=== PATIENT | female | born 1975 | race Caucasian/White ===

== ENCOUNTER → 2017-06-07 10:44 | Outpatient (CLI) | payer BC, SELFPAY ==
[2017-06-07 11:35] LABS: Alanine Aminotransferase 15 U/L (12-78); Albumin Level 3.9 gm/dL (3.4-5.0); Albumin/Globulin Ratio 0.8 (1.1-1.8); Alkaline Phosphatase 43 U/L (46-116); Aspartate Amino Transferase 15 U/L (15-37); Bilirubin,Total 0.4 mg/dL (0.2-1.0); Blood Urea Nitrogen 16 mg/dL (7-18); Calcium 9.4 mg/dL (8.5-10.1); Carbon Dioxide 27 mmol/L (21.0-32.0); Chloride 102 mmol/L (98-107); Chol/HDL Ratio 3.3 (1-3.5); Cholesterol 174 mg/dL (140-200); Creatinine,Serum 1.29 mg/dL (0.55-1.02); Estimated Glomerular Filt Rate 45 ml/min (>60); GFR (African American) 55 ML/MIN (>60); Globulin 4.8 gm/dl (1.3-3.2); Glucose 96 mg/dL (74-106); HDL Cholesterol 52 mg/dL (29-89); LDL Cholesterol 93 mg/dL (0-130); Sodium 137 mmol/L (136-145); Thyroid Stimulating Hormone 12.76 uIU/ml (0.358-3.740); Total Protein,Serum 8.7 gm/dL (6.4-8.2); Triglycerides 145 mg/dL (30-200); VLDL Cholesterol 29 mg/dL (0-40)
== END ==
PROVIDERS: Visit Provider Nurse Practitioner Family
DX: E78.5 Hyperlipidemia, unspecified (principal); E03.9 Hypothyroidism, unspecified; N18.2 Chronic kidney disease, stage 2 (mild)
CPT/HCPCS: 36415; 80053; 80061; 84443

== ENCOUNTER → 2018-02-20 15:55 | Outpatient (CLI) | payer BC, SELFPAY ==
[2018-02-20 17:48] LABS: Alanine Aminotransferase 20 U/L (12-78); Albumin Level 3.8 gm/dL (3.4-5.0); Albumin/Globulin Ratio 0.9 (1.1-1.8); Alkaline Phosphatase 46 U/L (46-116); Anion Gap 14.9 mEq/L (5-15); Aspartate Amino Transferase 11 U/L (15-37); Bilirubin,Total 0.3 mg/dL (0.2-1.0); Blood Urea Nitrogen 9 mg/dL (7-18); Calcium 8.8 mg/dL (8.5-10.1); Carbon Dioxide 25 mmol/L (21.0-32.0); Chloride 102 mmol/L (98-107); Creatinine,Serum 1.37 mg/dL (0.55-1.02); Estimated Glomerular Filt Rate 42 ml/min (>60); GFR (African American) 51 ML/MIN (>60); Globulin 4.3 gm/dl (1.3-3.2); Glucose 89 mg/dL (74-106); Potassium 3.9 mmoL/L (3.5-5.1); Sodium 138 mmol/L (136-145); Thyroid Stimulating Hormone 0.02 uIU/ml (0.358-3.740); Total Protein,Serum 8.1 gm/dL (6.4-8.2)
== END ==
PROVIDERS: Visit Provider Nurse Practitioner Family
DX: I10 Essential (primary) hypertension (principal); N18.2 Chronic kidney disease, stage 2 (mild); E03.9 Hypothyroidism, unspecified
CPT/HCPCS: 36415; 80053; 84443

== ENCOUNTER → 2018-06-09 10:10 | Outpatient (CLI) | payer BC, SELFPAY ==
[2018-06-09 12:54] LABS: Anion Gap 15.6 mEq/L (5-15); Blood Urea Nitrogen 12 mg/dL (7-18); Calcium 9.2 mg/dL (8.5-10.1); Carbon Dioxide 26 mmol/L (21.0-32.0); Chloride 105 mmol/L (98-107); Creatinine,Serum 1.35 mg/dL (0.55-1.02); Estimated Glomerular Filt Rate 43 ml/min (>60); GFR (African American) 52 ML/MIN (>60); Glucose 93 mg/dL (74-106); Potassium 4.6 mmoL/L (3.5-5.1); Sodium 142 mmol/L (136-145); Thyroid Stimulating Hormone 0.07 uIU/ml (0.358-3.740)
== END ==
PROVIDERS: Visit Provider Nurse Practitioner Family
DX: E03.9 Hypothyroidism, unspecified (principal); I10 Essential (primary) hypertension
CPT/HCPCS: 36415; 80048; 84443

== ENCOUNTER → 2019-10-12 08:12 | Outpatient (CLI) | payer BC, SELFPAY ==
--- NOTE | 2019-10-12 08:19 | MM_ITS ---
PROCEDURE: MM DIG SCREENING MAMM BI W/CAD Digital Breast Tomosynthesis Included CLINICAL INDICATION: SCREENING There is no personal or family history of breast cancer. There has been previous bilateral breast reduction surgery. COMPARISON: MG DMSB DIGITAL MAMM-SCREEN BILATERAL from 07/17/2010 MG DMSB DIG MAMM-SCREEN MALU from 12/11/2013 TECHNIQUE: Standard CC and MLO images and 3D Tomosynthesis was obtained. R2 CAD reviewed. FINDINGS: Moderate somewhat diffuse fibroglandular densities are seen in the central portions of both breasts. There is minimal post surgical scarring in the inferior quadrants of each breast. There is no suspicious lesion and no suspicious microcalcifications. IMPRESSION: Mild to moderate breast density with no suspicious lesions seen BI-RAD Category: 2 Benign Finding(s) FOLLOW-UP: 1YR 1 Year Follow-up (A letter has been sent to the patient regarding results of the study.) Dictated Dr. Jerry Duffy MD 10/19/2019 09:02 Dr. Jerry Brambila MD in [place] 10/19/2019 09:02
[2019-10-12 09:50] LABS: Basophils % 0.4 % (0.1-2.0); Eosinophils # 0.1 K/mm3 (0.0-0.4); Eosinophils % 2.1 % (0.1-12.0); Hematocrit 37.5 % (37.0-47.0); Hemoglobin 12.6 g/dL (12.2-16.2); Lymphocytes # 2.1 K/mm3 (0.7-4.5); Lymphocytes % 34.1 % (10-50); Mean Corpuscular HGB Conc 33.7 g/dL (31.8-35.4); Mean Corpuscular Hemoglobin 29.7 pg (27.0-31.2); Mean Corpuscular Volume 88.1 fl (81-99); Mean Platelet Volume 8.2 fl (7.4-10.4); Monocytes # 0.3 K/mm3 (0.1-1.0); Monocytes % 5.6 % (1.7-9.3); Neutrophils # 3.5 K/mm3 (1.8-7.8); Neutrophils % 57.8 % (37.0-80.0); Platelet Count 268 K/mm3 (142-424); Red Blood Count 4.25 M/mm3 (4.20-5.40); White Blood Count 6.1 K/mm3 (4.8-10.8)
[2019-10-12 10:31] LABS: Chloride 104 mmol/L (98-107); Potassium 5.2 mmoL/L (3.5-5.1); Sodium 140 mmol/L (136-145)
[2019-10-12 10:33] LABS: Alanine Aminotransferase 11 U/L (12-78); Aspartate Amino Transferase 21 U/L (14-36); Blood Urea Nitrogen 13 mg/dl (7-17); Estimated Glomerular Filt Rate 44 ml/min (>60); GFR (African American) 54 ML/MIN (>60)
[2019-10-12 10:34] LABS: Albumin Level 4.1 g/dl (3.5-5.0); Albumin/Globulin Ratio 1.2 (1.1-1.8); Alkaline Phosphatase 38 U/L (38-126); Anion Gap 15.2 mEq/L (5-15); Bilirubin,Total 0.4 mg/dl (0.2-1.3); Calcium 9.3 mg/dl (8.4-10.2); Carbon Dioxide 26 mmol/L (22.0-30.0); Chol/HDL Ratio 3.7 (1-3.5); Cholesterol 180 mg/dl (140-200); Globulin 3.5 g/dL (1.3-3.2); Glucose 94 mg/dl (74-100); HDL Cholesterol 49 mg/dl (40-60); Total Protein,Serum 7.6 g/dl (6.3-8.2); Triglycerides 146 mg/dl (30-150); VLDL Cholesterol 29 mg/dL (0-40)
[2019-10-12 10:48] LABS: Direct LDL Cholesterol 90.34 mg/dL (100-129)
[2019-10-12 11:09] LABS: Thyroid Stimulating Hormone 1.31 uIU/mL (0.465-4.68)
== END ==
PROVIDERS: PCP Nurse Practitioner Family; Visit Provider Nurse Practitioner Family
DX: Z12.31 Encounter for screening mammogram for malignant neoplasm of breast (principal); N18.2 Chronic kidney disease, stage 2 (mild); E03.9 Hypothyroidism, unspecified; E78.5 Hyperlipidemia, unspecified
CPT/HCPCS: 36415; 77063; 77067; 80053; 80061; 84443; 85025

== ENCOUNTER → 2020-10-29 09:52 | Outpatient (CLI) | payer BC, SELFPAY ==
--- NOTE | 2020-10-29 10:24 | MM_ITS ---
PROCEDURE: MM DIG SCREENING MAMM BI W/CAD Digital Breast Tomosynthesis Included CLINICAL INDICATION: SCREENING COMPARISON: MG DMSB DIGITAL MAMM-SCREEN BILATERAL from 07/17/2010 MG DMSB DIG MAMM-SCREEN MALU from 12/11/2013 MG MM DIG SCREENING MAMM BI W/CAD from 10/12/2019 TECHNIQUE: Standard CC and MLO images and 3D Tomosynthesis was obtained. R2 CAD reviewed. FINDINGS: Average fibroglandular tissue. Postsurgical changes from prior breast reduction. No suspicious appearing mass, malignant-appearing microcalcification, architectural distortion, or skin thickening. No significant change IMPRESSION: No change with no evidence of malignancy BI-RAD Category: 2 Benign Finding FOLLOW-UP: 1 YR 1 Year Follow-up (A letter has been sent to the patient regarding results of the study.) Dictated by: Lalit Awad MD 11/04/2020 09:00 Lalit Awad MD in [place] 11/04/2020 09:00
[2020-10-29 11:26] LABS: Basophils % 0.6 % (0.1-2.0); Eosinophils # 0.1 K/mm3 (0.0-0.4); Eosinophils % 2.4 % (0.1-12.0); Hemoglobin 12.6 g/dL (12.2-16.2); Lymphocytes # 1.9 K/mm3 (0.7-4.5); Lymphocytes % 43.5 % (10-50); Mean Corpuscular HGB Conc 33.2 g/dL (31.8-35.4); Mean Corpuscular Hemoglobin 27.7 pg (27.0-31.2); Mean Corpuscular Volume 83.4 fl (81-99); Mean Platelet Volume 8.7 fl (7.4-10.4); Monocytes # 0.3 K/mm3 (0.1-1.0); Monocytes % 6.1 % (1.7-9.3); Neutrophils # 2.1 K/mm3 (1.8-7.8); Neutrophils % 47.4 % (37.0-80.0); Platelet Count 298 K/mm3 (142-424); Red Blood Count 4.55 M/mm3 (4.20-5.40); Red Cell Distribution Width 13.2 % (11.5-17.5); White Blood Count 4.3 K/mm3 (4.8-10.8)
[2020-10-29 12:23] LABS: Chloride 107 mmol/L (98-107)
[2020-10-29 12:24] LABS: Potassium 4.7 mmoL/L (3.5-5.1); Sodium 143 mmol/L (136-145)
[2020-10-29 12:27] LABS: Alanine Aminotransferase 9 U/L (12-78); Albumin Level 4.7 g/dl (3.5-5.0); Albumin/Globulin Ratio 1.4 (1.1-1.8); Alkaline Phosphatase 48 U/L (38-126); Anion Gap 14.7 mEq/L (5-15); Aspartate Amino Transferase 22 U/L (14-36); Bilirubin,Total 0.5 mg/dl (0.2-1.3); Blood Urea Nitrogen 9 mg/dl (7-17); Calcium 9.4 mg/dl (8.4-10.2); Carbon Dioxide 26 mmol/L (22.0-30.0); Cholesterol 176 mg/dl (140-200); Estimated Glomerular Filt Rate 49 ml/min (>60); GFR (African American) 59 ML/MIN (>60); Globulin 3.3 g/dL (1.3-3.2); Glucose 91 mg/dl (74-100); Triglycerides 105 mg/dl (30-150); VLDL Cholesterol 21 mg/dL (0-40)
[2020-10-29 12:28] LABS: Chol/HDL Ratio 3.9 (1-3.5); HDL Cholesterol 45 mg/dl (40-60)
[2020-10-29 12:57] LABS: Thyroid Stimulating Hormone 0.21 uIU/mL (0.465-4.68)
== END ==
PROVIDERS: PCP Nurse Practitioner Family; Visit Provider Nurse Practitioner Family
DX: Z00.00 Encounter for general adult medical examination without abnormal findings (principal); Z12.31 Encounter for screening mammogram for malignant neoplasm of breast; I10 Essential (primary) hypertension; E78.5 Hyperlipidemia, unspecified; N18.2 Chronic kidney disease, stage 2 (mild)
CPT/HCPCS: 36415; 77063; 77067; 80053; 80061; 84443; 85025

== ENCOUNTER → 2021-10-29 10:46 | Outpatient (CLI) | payer BC, SELFPAY ==
--- NOTE | 2021-10-29 10:50 | MM_ITS ---
PROCEDURE INFORMATION: Exam: MG Bilateral Screening 3D Mammography Exam date and time: 10/29/2021 10:44 AM Age: 45 years old Clinical indication: Screening examination. No family history of breast cancer. TECHNIQUE: Imaging protocol: Bilateral Screening tomosynthesis and 2D mammography including computer-aided detection (CAD) when performed. COMPARISON: 1. MG MM DIG SCREENING MAMM BI W/CAD 10/29/2020 10:23 AM 2. MG MM DIG SCREENING MAMM BI W/CAD 10/12/2019 8:31 AM 3. MG DMSB DIG MAMM-SCREEN MALU 12/11/2013 3:20 PM 4. MG DMSB DIGITAL MAMM-SCREEN BILATERAL 07/17/2010 9:00 AM FINDINGS: MAMMOGRAPHY: Breast composition: There are scattered areas of fibroglandular density. Mass: None. Architectural distortion: Stable diffuse bilateral architectural distortion with history of reduction mammoplasty. Calcifications: No suspicious calcifications. Asymmetric density: None. Skin thickening: None. Axillary adenopathy: None. IMPRESSION: No mammographic evidence of malignancy. Annual screening is recommended unless otherwise clinically indicated. ASSESSMENT: BI-RADS Category 2: Benign
== END ==
PROVIDERS: PCP Nurse Practitioner Family; Visit Provider Nurse Practitioner Family
DX: Z12.31 Encounter for screening mammogram for malignant neoplasm of breast (principal)
CPT/HCPCS: 77063; 77067

== ENCOUNTER → 2021-11-09 09:24 | Outpatient (CLI) | payer BC, SELFPAY ==
[2021-11-09 10:06] LABS: Basophils % 0.5 % (0.1-2.0); Eosinophils # 0.1 K/mm3 (0.0-0.4); Eosinophils % 1.8 % (0.1-12.0); Hematocrit 38.7 % (37.0-47.0); Hemoglobin 11.8 g/dL (12.2-16.2); Lymphocytes # 1.9 K/mm3 (0.7-4.5); Lymphocytes % 31.5 % (10-50); Mean Corpuscular HGB Conc 30.4 g/dL (31.8-35.4); Mean Corpuscular Hemoglobin 28.4 pg (27.0-31.2); Mean Corpuscular Volume 93.5 fl (81-99); Mean Platelet Volume 9.3 fl (7.4-10.4); Monocytes # 0.4 K/mm3 (0.1-1.0); Neutrophils # 3.5 K/mm3 (1.8-7.8); Neutrophils % 60.2 % (37.0-80.0); Platelet Count 274 K/mm3 (142-424); Red Blood Count 4.14 M/mm3 (4.20-5.40); Red Cell Distribution Width 13.9 % (11.5-17.5); White Blood Count 5.9 K/mm3 (4.8-10.8)
[2021-11-09 10:34] LABS: Alanine Aminotransferase 12 U/L (12-78); Albumin Level 4.2 g/dl (3.5-5.0); Albumin/Globulin Ratio 1.3 (1.1-1.8); Alkaline Phosphatase 42 U/L (38-126); Anion Gap 10.9 mEq/L (5-15); Aspartate Amino Transferase 23 U/L (14-36); Bilirubin,Total 0.4 mg/dl (0.2-1.3); Blood Urea Nitrogen 10 mg/dl (7-17); Calcium 9.2 mg/dl (8.4-10.2); Carbon Dioxide 25 mmol/L (22.0-30.0); Chloride 105 mmol/L (98-107); Chol/HDL Ratio 4.2 (1-3.5); Cholesterol 194 mg/dl (140-200); Estimated Glomerular Filt Rate 53 ml/min (>60); GFR (African American) 65 ML/MIN (>60); Globulin 3.2 g/dL (1.3-3.2); Glucose 85 mg/dl (74-100); HDL Cholesterol 46 mg/dl (40-60); Potassium 3.9 mmoL/L (3.5-5.1); Sodium 137 mmol/L (136-145); Total Protein,Serum 7.4 g/dl (6.3-8.2); Triglycerides 118 mg/dl (30-150); VLDL Cholesterol 24 mg/dL (0-40)
[2021-11-09 10:51] LABS: Free T4 (Free Thyroxine) 0.73 ng/dl (0.78-2.19)
[2021-11-11 03:20] LABS: Direct LDL Cholesterol 115 mg/dL (100-129)
== END ==
PROVIDERS: PCP Nurse Practitioner Family; Visit Provider Nurse Practitioner Family
DX: Z00.00 Encounter for general adult medical examination without abnormal findings (principal); E03.9 Hypothyroidism, unspecified
CPT/HCPCS: 36415; 80053; 80061; 84439; 84443; 85025

== ENCOUNTER → 2022-01-19 09:29 | Outpatient (CLI) | payer BC, SELFPAY ==
--- NOTE | 2022-01-19 09:33 | MR_ITS ---
FINAL REPORT CLINICAL HISTORY: ELEVATED PROLACTIN LEVEL. HEADACHE AND BLURRED VISION. 15ML PROHANCE GIVEN . FINDINGS: Multiplanar MR imaging of the brain was performed without and with contrast. Pre and post images of the pituitary were obtained. There is no evidence of intracranial hemorrhage or mass. No abnormal extra-axial fluid collection is seen. The ventricular size is within normal limits. There is no evidence of shift of the midline structures. The posterior fossa and brainstem have an unremarkable appearance. No area of abnormal restricted diffusion is identified. No abnormal contrast enhancement is seen. Normal major vessel vascular flow voids are noted. On the postcontrast images is a 3 mm rounded hypoenhancing focus in the right lateral aspect of the pituitary gland. This focus demonstrates convex a superior margin concerning for a micro adenoma. Finding is best seen on image 5 of series 13. IMPRESSION: Findings concerning for a micro adenoma. No acute intracranial abnormality identified. Reviewed, Interpreted and Dictated by Nithin Reynolds MD Transcribed by Marguerite Rueda Authenticated and [facility]
== END ==
PROVIDERS: PCP Nurse Practitioner Family; Visit Provider Nurse Practitioner Family
DX: R79.89 Other specified abnormal findings of blood chemistry (principal)
CPT/HCPCS: 70553; A9576

== ENCOUNTER 2022-02-10 09:44 | Day surgery (SDC) | payer BC, SELFPAY ==
[2022-01-18 13:15] VITALS: BMI 25.7
[2022-02-10 10:26] VITALS: BP 112/77; PULSE 82; RESP 18; TEMP 36.6; O2SAT 99
[2022-02-10 10:36] LABS: Urine Pregnancy, HCG Qual. Negative (Negative)
--- NOTE | 2022-02-10 11:32 | P.PN_ITS ---
PFSH PFSH Medical History History of anxiety Hypothyroid Surgical History Hx of breast augmentation Hx of kidney removal Hx of ureter repair Family History Other Family history of TIAs Family history of bladder cancer Family history of diabetes mellitus type II Family history of myocardial infarction Family hx of colon cancer Social History Smoking Status: Never smoker alcohol intake: current substance use type: denies use current occupational status: employed Travel in the last 8 weeks: None household members: family housing: house lives independently: Yes marital status: education level: high school service: No retirement: No caffeine: No special gail needs: No agree to transfusion: No do you feel safe at home: Yes victim of physical abuse: No victim of emotional abuse: No victim of sexual abuse: No would you like helpful sources: No [facility] Anesthesia Checklist Patient Identification Patient Identification: Arm Band Structural Data Admitted From: Home Planned Operative Procedure/s: colonoscopy Consent for Planned Operative Procedure(s) Verified: Yes Verified Documents: Surgical Consent and History and Physical NPO Status Verified Time NPO: 00:00 Additional verifications Anesthesia Reactions: No Airway Assessment C-Spine Mobility Assessed: Yes TMJ Mobility Assessed: Yes Dentition: Good Dentition Anesthesia Plan Anesthesia Risk discussed: Yes Anesthesia Plan: Verified ASA Class: II Anesthesia Type: MAC
[2022-02-10 11:36] VITALS: O2SAT 99
[2022-02-10 11:58] VITALS: BP 88/52; PULSE 74; RESP 16; TEMP 36.3; O2SAT 96
--- NOTE | 2022-02-10 11:58 | P.PCN_ITS ---
Procedure: Date: 02/10/22 Patient Date of :: 1975 Procedure Performed:: Colonoscopy Indications:: Screening colonoscopy. Family history of colon cancer in second degree relative diagnosed in age 70's (uncle) Performing Provider:: Nick Ellis MD Referring Provider:: Nichole Pearl APRN Sedation:: See RN records Procedure:: After placing the patient in the left lateral decubitus position, the colonos copy was gently inserted into the rectum and under direct visualization advanced to the cecum which was identified by transillumination in the right lower quadrant, identification of the ileocecal valve, appendiceal orifice, and cecal strap. Color, texture, mucosa, and anatomy of the colon were carefully examined with the scope. Findings:: Anal canal: normal Rectum: normal Sigmoid colon: Fair preparation Descending colon: Fair preparation Splenic flexure: normal Transverse colon: normal without polyps or inflammatory changes Hepatic flexure: normal Ascending colon: Fair preparation Cecum: normal Terminal ileum: not visualized Recommendations:: Repeat colonoscopy in 5 years Complications:: None Estimated blood obtained (mL): 0
[2022-02-10 12:08] VITALS: BP 97/56; PULSE 71; RESP 16; O2SAT 100
[2022-02-10 12:18] VITALS: BP 92/54; PULSE 76; RESP 16; O2SAT 98
[2022-02-10 12:28] VITALS: BP 101/57; PULSE 77; RESP 16; TEMP 36.4; O2SAT 98
== END 2022-02-10 12:30 | disposition home or self-care (01) ==
PROVIDERS: PCP Nurse Practitioner Family; Visit Provider Internal Medicine
PROC: 0DJD8ZZ Inspection of Lower Intestinal Tract, Via Natural or Artificial Opening Endoscopic (ICD-10-PCS; CPT 45378; principal; 2022-02-10 11:00)
DX: Z12.11 Encounter for screening for malignant neoplasm of colon (principal); Z80.0 Family history of malignant neoplasm of digestive organs; Z79.899 Other long term (current) drug therapy
CPT/HCPCS: 45378; 81025

== ENCOUNTER → 2022-11-09 13:37 | Outpatient (CLI) | payer BC, SELFPAY ==
--- NOTE | 2022-11-09 13:30 | MM_ITS ---
PROCEDURE INFORMATION: Exam: MG Bilateral Screening 3D Mammography Exam date and time: 11/09/2022 1:11 PM Age: 46 years old Clinical indication: Screening examination; No personal or family history of breast cancer TECHNIQUE: Imaging protocol: Bilateral Screening tomosynthesis and 2D mammography including computer-aided detection (CAD) when performed. COMPARISON: 1. MG MM DIG SCREENING MAMM BI W/CAD 10/29/2021 10:44 AM 2. MG MM DIG SCREENING MAMM BI W/CAD 10/29/2020 10:23 AM FINDINGS: MAMMOGRAPHY: Breast composition: There are scattered areas of fibroglandular density. Mass: None. Architectural distortion: Mild diffuse bilateral architectural distortion is due to prior reduction mammoplasty Calcifications: No suspicious calcifications. Asymmetric density: None. Skin thickening: None. Axillary adenopathy: None. IMPRESSION: No mammographic evidence of malignancy. Annual screening is recommended unless otherwise clinically indicated. ASSESSMENT: BI-RADS Category 2: Benign
== END ==
PROVIDERS: PCP Nurse Practitioner Family; Visit Provider Nurse Practitioner Family
DX: Z12.31 Encounter for screening mammogram for malignant neoplasm of breast (principal)
CPT/HCPCS: 77063; 77067

== ENCOUNTER 2023-11-11 12:50 | Outpatient (CLI) | payer BC, SELFPAY ==
--- NOTE | 2023-11-11 12:54 | MM_ITS ---
PROCEDURE INFORMATION: Exam: MG Bilateral Screening 3D Mammography Exam date and time: 11/11/2023 12:46 PM Age: 47 years old Clinical indication: Screening examination TECHNIQUE: Imaging protocol: Bilateral Screening tomosynthesis and 2D mammography including computer-aided detection (CAD) when performed. COMPARISON: 1. MG MM DIG SCREENING MAMM BI W/CAD 11/09/2022 1:11 PM 2. MG MM DIG SCREENING MAMM BI W/CAD 10/29/2021 10:44 AM FINDINGS: MAMMOGRAPHY: Breast composition: There are scattered areas of fibroglandular density. Mass: Questioned 0.5 cm mass lower inner left breast middle depth. Architectural distortion: None. Calcifications: No suspicious calcifications. Asymmetric density: None. Skin thickening: None. Axillary adenopathy: None. IMPRESSION: Questioned left breast mass.The patient will be recalled for spot compression views of the left breast in the CC and MLO projections, a full 90 degree lateral view, and possible left breast ultrasound for further evaluation. ASSESSMENT: BI-RADS Category 0: Incomplete- Need Additional Imaging Evaluation.
== END 2023-11-11 23:59 | disposition home or self-care (01) ==
LOC: RAD 12:51
PROVIDERS: PCP Nurse Practitioner Family; Visit Provider Nurse Practitioner Family
DX: Z12.31 Encounter for screening mammogram for malignant neoplasm of breast (principal)
CPT/HCPCS: 77063; 77067

== ENCOUNTER 2023-11-28 15:21 | Outpatient (CLI) | payer BC, SELFPAY ==
--- NOTE | 2023-11-28 15:25 | US_ITS ---
PROCEDURE INFORMATION: Exam: US Left Breast, Complete MG Left Diagnostic Breast Tomosynthesis Exam date and time: 11/28/2023 3:16 PM Age: 47 years old Clinical indication: Recall on the basis of screening mammogram 11/11/2023 for further evaluation of questioned 0.5 cm mass lower inner left breast middle depth. TECHNIQUE: Imaging protocol: Complete ultrasound of all four quadrants of the left breast and the retroareolar regions, including ultrasound of the axilla when performed. Left Diagnostic tomosynthesis and 2D mammography including computer-aided detection (CAD) when performed. Unilateral or bilateral exam. COMPARISON: 1. MG MM DIG SCREENING MAMM BI W/CAD 11/11/2023 12:46 PM 2. MG MM DIG SCREENING MAMM BI W/CAD 11/09/2022 1:11 PM 3. MG MM DIG SCREENING MAMM BI W/CAD 10/29/2021 10:44 AM 4. MG MM DIG SCREENING MAMM BI W/CAD 10/29/2020 10:23 AM MG MM DIG SCREENING MAMM BI W/CAD 10/12/2019 8:31 AM FINDINGS: MAMMOGRAPHY: Breast composition: There are scattered areas of fibroglandular density based on the most recent screening mammogram report. Breast mammogram findings: Additional images demonstrates that the questionable 0.5 cm mass appears to disperse with patchy tissue in the true lateral, similar to 10/12/2019 and may reflect scarring related to reduction mammoplasty. ULTRASOUND: Breast ultrasound findings: Left sonography, all 4 quadrants, retroareolar and axilla. At 6 o'clock 2 cm from the nipple, anechoic avascular cyst measuring 0.3 x 0.3 x 0.2 cm, likely correlates to the initially seen oval mass which effaced on additional spot compression. Questionable patchy hypoechoic regions suggested in the lower inner quadrant, perhaps related to scarring from reduction mammoplasty. IMPRESSION: Probably benign mammographic mass and asymmetry, likely correlating to benign appearing 0.3 cm cyst at 6 o'clock sonographically and post reduction scarring mammographically, similar to 2019. Suggest six-month follow-up left diagnostic mammography and left sonography unless otherwise clinically indicated. ASSESSMENT: BI-RADS Category 3: Probably benign.
== END 2023-11-28 23:59 | disposition home or self-care (01) ==
LOC: RAD 15:22
PROVIDERS: PCP Nurse Practitioner Family; Visit Provider Nurse Practitioner Family
DX: R92.8 Other abnormal and inconclusive findings on diagnostic imaging of breast (principal)
CPT/HCPCS: 76641; 77061; 77065; G0279

== ENCOUNTER 2024-04-26 09:00 | Outpatient (RCR) | payer BC, SELFPAY | END 2024-04-26 23:59 | disposition home or self-care (01) | LOC: PT 09:00 | PROVIDERS: PCP Nurse Practitioner Family; Visit Provider Nurse Practitioner Family | DX: R51.9 Headache, unspecified (principal); M54.9 Dorsalgia, unspecified | CPT/HCPCS: 97014; 97110; 97140; 97163; G0283 ==

== ENCOUNTER 2024-05-24 09:00 | Outpatient (RCR) | payer BC, SELFPAY ==
--- NOTE | 2024-05-16 16:41 | HMH.RHREAS ---
Rehab Reassessment Rehab OP Re-assessment Start: 05/16/24 13:58 Freq: Status: Active Protocol: Document 05/16/24 16:31 PHOROSAURA (Rec: 05/16/24 16:39 PHORNE [id number]) E-signed By Todd Al, PT Neck Disability Index Neck Disability Index Section 1: Pain Intensity The pain is very mild at moment Section 2: Personal Care (washing, I can look after myself dressing, etc.) normally without causing extra pain Section 3: Lifting I can lift heavy weights without extra pain Section 4: Reading I can read as much as I want to with no pain in my neck Section 5: Headaches I have moderate headaches, which come frequently Section 6: Concentration I can concentrate fully when I want to with no difficulty Section 7: Work I can do as much work as I want to Section 8: Driving I can drive my car as long as I want with slight pain in my neck Section 9: Sleeping My sleep is midly disturbed (1 -2 hrs sleepless) Section 10: Recreation I am able to engage in all my recreation activities with some pain in NDI Score 8 Rehab Re-assessment Subjective Subjective Pt reports she continues to have discomfort on the R side of her neck, but decreased overall pain. Pain at worst rated 5/10. She does also have continued headaches, but the intensity is decreased in general. Objective Objective Notes AROM C-spine: WNL throughout. TTP: 1/4 R UT and lev scap. MMT: B UE grossly 5/ NDI: 8 currently Assessment Progress Assessment Progressing as Expected Assessment Notes Pt has shown significant improvements in strength and overall frequency or intensity of headaches. She does continue to have pain in her neck and needs to further improve her overall muscle tightness. Skilled therapy is indicated to improve all deficient areas in order to return pt to OF. Patient goals met ST/ LT/5 Plan Plan Continue per initial POC. Frequency of Therapy 2 x/wk Duration of therapy 4 wks Time and Billing Re-Eval Time 11 Re-Eval Billing Units 1 Charge for PT reassessment? Yes PHYSICIAN CERTIFICATION: I certify the specified therapy services for Lorraine Macarioll are required, authorized, and reviewed every 30 days.
== END 2024-05-24 23:59 | disposition home or self-care (01) ==
LOC: PT 09:00
PROVIDERS: PCP Nurse Practitioner Family; Visit Provider Nurse Practitioner Family
DX: R51.9 Headache, unspecified (principal); M54.9 Dorsalgia, unspecified
CPT/HCPCS: 97014; 97110; 97140; 97164; G0283

== ENCOUNTER 2024-06-13 13:15 | Outpatient (CLI) | payer BC, SELFPAY ==
--- NOTE | 2024-06-13 13:25 | US_ITS ---
PROCEDURE INFORMATION: Exam: US Left Breast, Complete MG Left Diagnostic Breast Tomosynthesis Exam date and time: 06/13/2024 1:32 PM Age: 48 years old Clinical indication: Short-term radiographic followup of previous findings in the left breast. TECHNIQUE: Imaging protocol: Complete ultrasound of all four quadrants of the left breast and the retroareolar regions, including ultrasound of the axilla when performed. Left Diagnostic tomosynthesis and 2D mammography including computer-aided detection (CAD) when performed. Unilateral or bilateral exam. COMPARISON: US BREAST LT COMPLETE 11/28/2023 3:33 PM FINDINGS: MAMMOGRAPHY: Breast composition: The breast is heterogeneously dense, which may obscure small masses. Breast mammogram findings: Mild diffuse bilateral architectural distortion is due to prior reduction mammoplasty. No stellate mass, unexplained architectural distortion, or suspicious microcalcifications to suggest malignancy. No skin thickening or axillary adenopathy. ULTRASOUND: Breast ultrasound findings: Fibroglandular tissue is seen at the 6 o'clock axis, with no discrete mass or cyst. No suspicious findings are seen in the left breast. No shadowing or distortion. No axillary adenopathy. IMPRESSION: 1. No mammographic or sonographic evidence of malignancy. Previous findings do not persist. 2. Annual bilateral mammographic screening is recommended unless otherwise clinically indicated. ASSESSMENT: BI-RADS Category 2: Benign.
== END 2024-06-13 23:59 | disposition home or self-care (01) ==
LOC: RAD 13:15
PROVIDERS: PCP Nurse Practitioner Family; Visit Provider Nurse Practitioner Family
DX: R92.8 Other abnormal and inconclusive findings on diagnostic imaging of breast (principal)
CPT/HCPCS: 76641; 77061; 77065; G0279

== ENCOUNTER 2025-03-04 15:44 | Outpatient (CLI) | payer BC, SELFPAY ==
--- NOTE | 2025-03-04 15:46 | MM_ITS ---
PROCEDURE INFORMATION: Exam: MG Bilateral Screening 3D Mammography Exam date and time: 03/04/2025 3:45 PM Age: 49 years old Clinical indication: Screening mammogram TECHNIQUE: Imaging protocol: Bilateral Screening tomosynthesis and 2D mammography including computer-aided detection (CAD) when performed. COMPARISON: 1. MG MM DIG MAMM DX UNILAT LT CAD 06/13/2024 2:00 PM 2. MG MM DIG MAMM DX UNILAT LT CAD 11/28/2023 3:16 PM 3. MG MM DIG SCREENING MAMM BI W/CAD 11/11/2023 12:46 PM 4. MG MM DIG SCREENING MAMM BI W/CAD 11/09/2022 1:11 PM FINDINGS: MAMMOGRAPHY: Breast composition: The breast is heterogeneously dense, which may obscure small masses. Mass: None. Architectural distortion: No new or suspicious architectural distortion. Calcifications: No new or suspicious calcifications are present Asymmetric density: No new or suspicious asymmetric density is present Skin thickening: None. Axillary adenopathy: None. IMPRESSION: No mammographic evidence of malignancy. Recommend annual screening mammography unless otherwise clinically indicated. ASSESSMENT: BI-RADS category 1: Negative.
--- OUTSIDE RECORDS SUMMARY | 2025-03-04 15:47 | XMS_ITS | Clinical Summary ---
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 Active loratadine (CLARITIN) 10 mg tablet Take 1 tablet (10 mg total) by mouth daily. Active levothyroxine (SYNTHROID, LEVOTHROID) 137 MCG tablet Take 1 tablet (137 mcg total) by mouth Every morning on an empty stomach. Active multivitamin capsule Take 1 capsule by mouth daily. Active Active Problems No known active problems Family History Medical History Relation Name Comments Arthritis Other Cancer Other Diabetes Other Heart disease Other Hyperlipidemia Other Stroke Other Thyroid disease Other Relation Name Status Comments Other Social History Tobacco Use Types Packs/Day Years Used Date Smoking Tobacco: Never Passive Smoke Exposure: Never Smokeless Tobacco: Never Tobacco Cessation:Counseling Given: Not Answered Alcohol Use Standard Drinks/Week Comments Yes 0 (1 standard drink = 0.6 oz pur e alcohol) occasionally Overall Financial Resource Strain (CARDIA) Answe r Date Recorded How hard is it for you to pa y for the very basics like food, housing, medical care, and heating? Not very hard 12/14/2022 Hunger Vital Sign Answer Date Recorded Within the past 12 months, y ou worried that your food would run out before you got the money to buy more. Never true 12/15/19 23 Within the past 12 months, t he food you bought just didn't last and you didn't have money to get more. Never true 12/14/2022 PRAPARE - Transportation Answer Date Re corded In the past 12 months, has l ack of transportation kept you from medical appointments or from getting medications? No 05/2022 In the past 12 months, has l ack of transportation kept you from meetings, work, or from getting things needed for daily living? No 12/14/2022 Food Insecurity Answer Date Recorded Food run out past 12 months Not on file 03/14 Food did not last past 12 months Not on file 04/01/2023 Transportation Needs Answer Date Record ed Transportation unreliable past 12 months Not on file 06/23/2023 Employment Answer Date Recorded Help finding and keeping a job Not on file 0 04/01/2023 Family and Community Support Answer Scout e Recorded Help with Day to Day Activities Not on file 04/01/2023 Feeling Lonely or Isolated Not on file 04/01 Educational Attainment Answer Date Bertin rded Speak language other than Turkish at home Not on file 04/01/2023 Want help with school or training Not on file 04/01/2023 Substance Use Answer Date Recorded Used prescription meds for non-medical reasons N ot on file 04/01/2023 Used illegal drugs past 12 months Not on file 04/01/2023 Comments Unknown Sex and Gender Information Value Date Recorded Sex Assigned at Female 10/12/2021 10:02 AM CDT Legal Sex Female 10:02 AM CDT Gender Identity Female 10/12/2021 10:02 AM CDT Sexual Orientation Not on file Last Filed Vital Signs Vital Sign Reading Time Taken Comments Blood Pressure 125/87 12/10/2022 10:13 AM EDT Pulse 72 12/10/2022 10:13 AM EDT Temperature - - Respiratory Rate - - Oxygen Saturation - - Inhaled Oxygen Concentration - - Weight 60.3 kg (133 lb) 12/10/2022 10:13 AM EDT Height 162.6 cm (5' 4 ) 12/10/2022 10:13 AM EDT Body Mass Index 22.83 12/10/2022 10:13 AM EDT Plan of Treatment Health Maintenance Due Date Last Done Comments CT Colonography 1975 Colonoscopy 1975 Colorectal Cancer Screening 1975 FOBT/FIT 1974 Fit-DNA (Cologuard) 1974 Sigmoidoscopy 1974 Depression Screening (12+) 1986 HIV Screening 1989 Hepatitis C Screening 1992 DTAP/TDAP/TD VACCINES (1 - Tdap) 1993 Breast Cancer Screening 2014 Lipid Panel 12/20/2019 Tobacco Cessation Counseling and Screening (12+) 12/1012/10/2022 COVID-19 VACCINE (1 - 2023- season) 2024 Influenza Vaccine (#1) 2024 Pneumococcal 50+ years (1 of 1 - PCV) 2024 Shingles Vaccine (Zoster) (1 of 2) 2024 HPV only 12/11/2027 12/10/2022 Procedures Procedure Name Priority Date/Time Associated Diagnosis Comments THINPREP TIS PAP RFX HPV AP Routine 12/10/2022 12:00 AM EDT from Last 3 Months or Most Recently Relevant to Health Maintenance Results * THINPREP TIS PAP RFX HPV (12/10/2022 12:00 AM EDT) Smear us Historical Provider PATHOLOGY/CYTOLOGY ORDERA BLES Final Result Performing Organization Address City/State/[facility] Co de Phone Number [facility] [address] [place] [address] from Last 3 Months or Most Recently Relevant to Health Maintenance Insurance LETY ARAM[place]ULA [id number] [facility] [employer] Member Subscriber Plan / Payer (Ef fective 2020-Present) Name:Lorraine Amin Relation to Subscriber:Spouse Name:LORRAINE AMIN Date of :1974 (Home) Address: [address] [place], [place] [address] [id number] Payer ID:Not on file Type:Not on file Address: [facility] [address] [place] [phone]
--- OUTSIDE RECORDS SUMMARY | 2025-03-04 15:47 | XMS_ITS | Data Portability ---
Author Organization [place] Address [address] [place] [address] Care Team Providers Care Mortician Helper Name Role Phone PATRICK MARTINS Advertising Dispatch Clerks Supervisor [facility] Primary Care Provider Assessment Encounter Date Assessment Date Assessment LastModified by Organization Details LastModified Time 04/19/2024 04/19/2024 48-year-old female with history of an absent kidney presenting with monitoring of kidney function and follow-up on previously identified renal abnormalities. Current evaluation of renal function shows stability with no new changes in the size or function of the right kidney. The presence of fullness in the right kidney is likely attributable to compensatory hypertrophy due to the absence of the contralateral kidney. Ongoing surveillance remains crucial. Fullness Of Right Kidney: The fullness is assumed to be secondary to compensatory hypertrophy in the absence of the left kidney. Continuous monitoring through imaging and blood work remains the chosen pathway to manage this condition, with no immediate intervention required given stable imaging findings. Absent Kidney: The patient will continue annual ultrasound monitoring to assess for changes in the right kidney. Biannual blood tests will be performed to evaluate renal function. The current regimen ensures prompt identification of any functional decline or significant anatomical changes, allowing for timely intervention. [email or web address] Not available 04/19/2024 18:18:48 Plan of Treatment Reminders Order Date Submit Date Provider Last Modified By Organization Details Last Modified Time Details Appointments RECHECK 2025 09:45A Caridad KAY MD Not available Not available Not available Lab urinalysi s panel, auto 2024 025 ermias [facility], [address] [place] [address] Rd, [address], [place], [address], 04/23/2024 08:44:02 CBC w/ auto diff 2023 024 TOAN [facility], [address], [address], [place], [address], 02/02/2024 05:47:23 CMP, serum or plasma 2023 024 [email or web address] 3 [facility], [address], [address], [place], [address], 02/06/2024 08:46:16 Mycobacte rium tuberculo sis stimulate d gamma interfero n, qual, blood 2023 024 [email or web address] 3 [facility], [address], [address], [place], [address], 02/06/2024 08:46:16 hepatitis panel (A+B+C), acute, serum 2023 024 [email or web address] 3 [facility], [address], [address], [place], [address], 02/06/2024 08:46:16 HIV 1 + 2 RNA panel, STEF+probe , serum or plasma 2023 024 [email or web address] 3 [facility], [address], [address], [place], [address], 02/06/2024 08:46:16 Referral None recorded. Procedures None recorded. Surgeries None recorded. Imaging US, retroperi toneum, limited 2024 025 [email or web address] Not available 10/19/2024 15:45:35 Medication Orders hydroxyzi ne HCl 25 mg tablet 2024 025 [email or web address] [id number], [address] [place], [address], 06/14/2024 10:48:05 Patient TargetsNo targets recorded. Patient Instructions Encounter Date Encounter Id Patient Instructions Last Modified By Organization Details Last Modified Time 04/19/2024 [id number] - Continue with the plan for regular annual ultrasounds of the right kidney. - Ensure blood tests are conducted every six months to monitor kidney function. - Report any unusual symptoms or changes in your health promptly. - Stay informed regarding your kidney health and adhere to the follow-up schedule set by your healthcare providers. [email or web address] Not available 04/19/2024 18:18:49 Reason for Referral None Reported. Results Created Date Observation Date Name Description Value Unit Range Abnormal Flag Note LastModifiedBy Organization Detail LastModifiedTime 04/19/1904/19/2024 urina lysis panel , auto Unknown Analyte Clean Catch Not Available [facility] [address], [address], 04/19/2024 16:19:47 04/19/19 25 04/19/2024 urina lysis panel , auto Unknown Analyte Yellow Not Available [facility] [address] [place] [address], [address], 04/19/2024 16:19:47 04/19/19 25 04/19/2024 urina lysis panel , auto Unknown Analyte Clear Not Available [facility] [address], [address], 04/19/2024 16:19:47 04/19/19 25 04/19/2024 urina lysis panel , auto Unknown Analyte 1.005 Not Available [facility] [address] [place] [address], [address], 04/19/2024 16:19:47 04/19/19 25 04/19/2024 urina lysis panel , auto Unknown Analyte 1.003- 1.035 Not Available [facility] [address] [place] [address] Rd [address], [place], [address], 04/19/2024 16:19:47 04/19/19 25 04/19/2024 urina lysis panel , auto Unknown Analyte 5.0 Not Available [facility] [address] [place] [address] Rd [address], [place], [address], 04/19/2024 16:19:47 04/19/19 25 04/19/2024 urina lysis panel , auto Unknown Analyte 5.0-8. 0 Not Available [facility] [address], [place], [address], 04/19/2024 16:19:47 04/19/19 25 04/19/2024 urina lysis panel , auto Unknown Analyte Negati ve Not Available [facility] [address], [place], [address], 04/19/2024 16:19:47 04/19/19 25 04/19/2024 urina lysis panel , auto Unknown Analyte Negati ve Not Available [facility] [address], [place], [address], 04/19/2024 16:19:47 04/19/19 25 04/19/2024 urina lysis panel , auto Unknown Analyte Negati ve Not Available [facility] [address] [place] [address] Rd [address], [place], [address], 04/19/2024 16:19:47 04/19/19 25 04/19/2024 urina lysis panel , auto Unknown Analyte Negati ve Not Available [facility] [place] [address] [address], [place], [address], 04/19/2024 16:19:47 04/19/19 25 04/19/2024 urina lysis panel , auto Unknown Analyte Negati ve Not Available [facility] [address] [place] [address] Rd [address], [place], [address], 04/19/2024 16:19:47 04/19/19 25 04/19/2024 urina lysis panel , auto Unknown Analyte Negati ve Not Available [facility] [address] [place] [address] Rd [address], [place], [address], 04/19/2024 16:19:47 04/19/19 25 04/19/2024 urina lysis panel , auto Unknown Analyte Normal Not Available [facility] [address] [address] [address], [place], [address], 04/19/2024 16:19:47 04/19/19 25 04/19/2024 urina lysis panel , auto Unknown Analyte Normal Not Available [facility] [address], [place], [address], 04/19/2024 16:19:47 04/19/19 25 04/19/2024 urina lysis panel , auto Unknown Analyte Negati ve Not Available [facility] [address] [address], [place], [address], 04/19/2024 16:19:47 04/19/19 25 04/19/2024 urina lysis panel , auto Unknown Analyte Negati ve Not Available [facility] [address], [place], [address], 04/19/2024 16:19:47 04/19/19 25 04/19/2024 urina lysis panel , auto Unknown Analyte Normal Not Available [facility] [address] [place] [address] Rd [address], [place], [address], 04/19/2024 16:19:47 04/19/19 25 04/19/2024 urina lysis panel , auto Unknown Analyte Normal 1 mg/dl Not Available [facility] [address], [place], [address], 04/19/2024 16:19:47 04/19/19 25 04/19/2024 urina lysis panel , auto Unknown Analyte Negati ve Not Available [facility] [address], [place], [address], 04/19/2024 16:19:47 04/19/19 25 04/19/2024 urina lysis panel , auto Unknown Analyte Negati ve Not Available [facility] [address], [place], [address], 04/19/2024 16:19:47 04/19/19 25 04/19/2024 urina lysis panel , auto Unknown Analyte Negati ve Not Available [facility] [address], [address], 04/19/2024 16:19:47 04/19/19 25 04/19/2024 urina lysis panel , auto Unknown Analyte Negati ve Not Available [facility] [address] [place] [address], [address], 04/19/2024 16:19:47 04/19/19 25 04/19/2024 US, retro perit oneum , limit ed [address] [address] [address] Name: LORRAINE diaz : [address] Orderi ng Provid er: AJ COTTRELL JR EXAM DATE: 2024 EXAM: US KIDNEY BILAT WO BLADDE R CLINIC AL INFORM ATION: Hydron ephros is TECHNI QUE: Multip le sonogr aphic images of both kidney s were obtain ed. COMPAR LOI: 024 FINDIN GS: RIGHT KIDNEY : Length = 11.8 cm. Minima l fullne ss of the renal pelvis measur ing 8 mm. No stone or mass. LEFT KIDNEY : Surgic ally absent IMPRES AZIZA: Stable mild fullne ss of the right renal pelvis Interp reted By: Rolan Haji MD Electr onical ly Signed By: Rolan Haji MD on 04/19/19 1:[address] [facility] [address], [address], 04/19/2024 17:14:57 Result Notes None recorded. Problems Name Problem SNOMED Code Status Onset Date Resolution Date Notes Provider Name and Address Organization Details Recorded Time Hydronephro sis due to ureteral stricture 8656974743705 00 Active 2021 AJ KAY JR, MD [address] [place] [address], [address], [facility] 2 16:06:58 Urinary tract infectious disease 36161593 Active 2021 AJ KAY JR, MD [address] [place] [address], [address], [facility] 2 16:06:59 Left kidney absent 195176887 Active 2021 AJ KAY JR, MD [address] [place] [address], [address], [facility] 2 07:06:59 Renal insufficien cy 896602578 Active 2021 AJ KAY JR, MD [address] [place] [address], [address], [facility] 2 07:07:00 Problem Notes None recorded. Procedures Surgical History Date Name Laterality Status Provider Name and Address Organization Details Recorded Time 4 Patch Test completed JAXON ANGEL MD [address] [place] [address], [address], [facility] 07/11/2023 12:51:35 2 NEPHRECTOMY (SURG) completed Fernando Bauer [facility] 09/07/2021 15:56:54 Imaging Results None recorded. Procedure Notes None recorded. Medical Equipment None Reported. Allergies No known drug allergies Medications Name Sig Start Date Stop Date Status Note LastModified by Organization Details LastModified Time Prescriptio n - Prior Authorizati on Request active Not Available Not Available N ot Available amoxicillin 500 mg capsule TAKE 2 CAPSULES BY MOUTH THREE TIMES A DAY TAKE THREE TIMES DAILY UNTIL COMPLETE. 03/17 completed Not Available Not Available Not Available fluconazole 150 mg tablet TAKE 1 TABLET BY MOUTH FOR 5 DAYS. 03/17 completed Not Available Not Available Not Available Synthroid 100 mcg tablet active Not Available Not Available Not Available fluorouraci l 5 % topical cream APPLY TOPICALLY TO THE FACE TWICE A DAY FOR 14 DAYS, THEN STOP 03/17 completed Not Available Not Available Not Available peg-electro lyte solution 420 gram oral solution DRINK 240 ML ORALLY EVERY 10 MINUTES UNTIL FECAL EFFLUENT IS CLEAR- FOLLOW MAILED INSTRUCTI ONS 03/17 completed Not Available Not Available Not Available citalopram 20 mg tablet active Not Available Not Available Not Available Euthyrox 125 mcg tablet Take 1 tablet every day by oral route. active Not Available Not Available No t Available hydrocodone 7.5 mg-acetamin ophen 325 mg tablet TAKE 1 TABLET BY MOUTH EVERY 4 HOURS NEEDED FOR PAIN 03/17 completed Not Available Not Available Not Available tacrolimus 0.1 % topical ointment Apply by topical route for 14 days. 2023 active Not Available Not Available Not Avai lable ferrous sulfate 325 mg (65 mg iron) tablet 325 MILLIGRAM BY MOUTH ONCE DAILY 03/17 completed Not Available Not Available Not Available lisinopril 10 mg tablet 03/17 completed Not Available Not Available Not Available docusate sodium 100 mg capsule TAKE 1 CAPSULE BY MOUTH TWICE A DAY 03/17 completed Not Available Not Available Not Available betamethaso ne, augmented 0.05 % topical ointment APPLY TO THE AFFECTED AREA(S) BY TOPICAL ROUTE TWICE DAILY FOR 2 WEEKS 2023 active Not Available Not Available Not Avai lable hydroxyzine HCl 25 mg tablet Take 1 tablet every day by oral route at bedtime. 2024 active Not Available Not Available Not Avai lable Synthroid 112 mcg tablet active Not Available Not Available Not Available levofloxaci n 500 mg tablet TAKE 1 TABLET BY MOUTH EVERY DAY FOR 5 DAYS 03/17 completed Not Available Not Available Not Available oxycodone-a cetaminophe n 7.5 mg-325 mg tablet TAKE 1 TABLET BY MOUTH EVERY 6 HOURS NEEDED FOR PAIN 03/17 completed Not Available Not Available Not Available hydrocortis one 2.5 % topical ointment APPLY A THIN LAYER TO THE AFFECTED AREA(S) BY TOPICAL ROUTE 2 TIMES PER DAY FOR 7 DAYS, THEN STOP. REPEAT NEEDED. 2023 active Not Available Not Available Not Avai lable ondansetron 4 mg disintegrat ing tablet 4 MILLIGRAM SUBLINGUA L EVERY FOUR HOURS NEEDED FOR NAUSEA/VO MITING 03/17 completed Not Available Not Available Not Available erythromyci n active Not Available Not Available Not Available Claritin active Not Available Not Avai lable Not Available multivitami n active Not Available Not Available Not Available Fiber Gummies active Not Available Not Available Not Available Euthyrox 137 mcg tablet Take 1 tablet every day by oral route. 04/19 completed Not Available Not Available Not Available Dupixent 300 mg/2 mL subcutaneou s pen injector Inject 300 mg every 2 weeks by subcutane ous route. 2023 active dc Not Available Not Available Not Avai lable Opzelura 1.5 % topical cream APPLY A THIN LAYER TO THE AFFECTED AREA(S) BY TOPICAL ROUTE 2 TIMES PER DAY (DO NOT EXCEED 60 GRAMS PER WEEK) 2024 active Not Available Not Available Not Avai lable Cibinqo 100 mg tablet active Not Available Not Available No t Available Vitals Date Recorded Body height Body mass index (BMI) Body weight Provider Name and Address Organization Details Last Updated DateTime 04/19/2024 162.56 cm 20.3 kg/m2 98970.9 javon Alvarez [facility] 04/19/2024 15:23:18 Social History Question Answer Notes LastModified by Organizat ion Details LastModified Time Tobacco Smoking Status Never Smoker Sari Betancourt [facility] 08/14/2021 10:07:26 Sunscreen Use? Yes Informatio n not available 01/30/2024 Tanning Bed Use Yes Informati on not available 01/30/2024 What Was The Date Of Your Most Recent Tobacco Screening? 06/14/2024 Information not available 06/14/2024 What Is Your Relationship Status? [email or web address] Information not available 08/14/2021 Has Tobacco Cessation Counseling Been Provided? No [email or web address] Information not available 08/14/2021 Have You Recently Traveled Abroad? No [email or web address] Information not available 08/14/2021 Sex: Unknown Functional Status Question Answer Note LastModified by Organizat ion Details LastModified Time Do you use any illicit or recreational drugs? No [email or web address] Information not available 08/14/2021 Do you or have you ever used any other forms of tobacco or nicotine? No [email or web address] Information not available 08/14/2021 What is your level of alcohol consumption? Occasional [email or web address] Information not available 03/17/2023 Mental Status None recorded. Family History Nothing Reported. Medical History Condition Response Hypertension Y Kidney Disease Y Gynecological HistoryNo gynecological history recorded. Obstetrics History GPAL:G 0 P 0 0 0 0 Past Encounters Encounter ID Performer Location Encounter Start Date Encounter Closed Date Diagnosis/Indication Diagnosis SNOMED-CT Code Diagnosis ICD10 Code Diagnosis IMO Codes Diagnosis Note [id number] AJ KAY JR, MD [facility] [address] [place] [address] 08/14/2021 09:01:27 08/14/2021 10:18:37 Urinary tract infectious disease 94498803 N39.0 Hydronephr osis due to ureteral stricture 4800577054 98399 N13.1 [id number] AJ KAY JR, MD [facility] [address] [place] [address] 09/24/2021 14:11:46 09/24/2021 16:12:38 Renal insufficiency 674819612 N28.9 Left kidney absent 20323 8001 Z90.5 [id number] AJ KAY JR, MD [facility] [address] [place] [address] 04/05/2022 10:10:44 04/05/2022 11:02:52 Left kidney absent 423464098 Z90.5 Renal insufficiency 7231 53042 N28.9 [id number] QUINTIN RODRIGUEZ [facility] [address] [place] [address] 03/17/2023 10:44:04 03/17/2023 12:24:03 Multiple benign melanocytic nevi 793442004 D22.5 L81.4 D18.01 L82.1 The benign nature of keratoses and lentigines was discussed with the patient.Landis n protection with SPF 30 broad spectrum sunscreen and protective gear discussed. Look for physical omar sunscreens with at least SPF 30 containing zinc oxide or titanium dioxide as active ingredient .Recommend monthly self examinatio ns and yearly full skin examinatio n with a dermatolog y provider.R ecommend yearly eye exam.Recom mend OTC Vitamin D supplement .Patient instructed to call if any suspicious lesions are noted.If this continues to be a problem, will consider patch testing. Contact dermatitis 01976 004 L23.89 The etiology of the condition discussed with pt - acute condition. Can develop allergies over time.Stop using candles for the next 8 weeks.Ok to re-start one product at a time.Rec to avoid OTC hyaluronic acid cleanser as pt noticed a flare up after using this product.Rx prescribed for Rx Hydrocorti sone 2.5% topical ointment, BID x 7 days. SE reviewed. LT use discussed. Call if not better. Consider patch testing if persists. [id number] AJ KAY JR, MD [facility] [address] [place] [id number] 04/07/2023 10:54:33 04/07/2023 12:56:25 Absent kidney 122958716 Z90.5 Hydronephr osis due to ureteral stricture 7609274802 59551 N13.1 Renal insufficiency 7231 21083 N28.9 [id number] JAXON ANGEL MD [facility] [address] [place] [id number] 07/11/2023 09:48:02 07/11/2023 10:37:56 Allergic contact dermatitis 794077928 L23.89 Patient education: Advised patient to keep back clean and dry.Avoid strenuous exercise that may dislodge patches.Av oid excessive sweating.P atient may bathe, as long as patches stay clean and dry.If tape comes loose-add more paper tape-do not pull loose tape off. [id number] JAXON ANGEL MD [place] [id number] 07/13/2023 11:22:17 07/13/2023 12:41:06 Contact dermatitis 72557191 L23.2 48h patch test reading negativeI suspect acrylates from nails but negative today [id number] JAXON ANGEL MD [address] [address] 07/14/2023 13:25:32 07/14/2023 14:01:19 Contact dermatitis 01295296 L23.2 72h patch test reading negativeI suspect acrylates from nails or fragrances from essential oil diffusers. Discussed avoidance of any aerosolize d fragrance as well as removal and avoidance of acrylate nails.ok to use HC oint bid x 1 week then twice per weeksee us eight weeksconsi lionel repeat patch test in the fall to include nail series and fragrance series [id number] QUINTIN RODRIGUEZ [facility] [address] [place] [address] 09/26/2023 10:42:47 09/26/2023 12:00:05 Allergic contact dermatitis 954806884 L23.89 L20.89 The nature of the diagnosis was discussed. Pnt had allergy patch testing.Sh e has used only Vanicream products and has not had nails on in 2 months. Prior tx: hydrocorti sone - failed. Tacrolimus - failed.BSA : >10%OK to get nails done again as this was not culprit as she d/c'ed artificial nailsMsg sent to [facility] to start PA process of Dupixent. [id number] QUINTIN RODRIGUEZ [address] [address] 11/09/2023 09:49:15 11/09/2023 10:23:08 Atopic dermatitis 06547400 L20.89 L29.8 The nature of the diagnosis was discussed. Pt has failed betamethas one, hydrocorti sone, and tacrolimus .BSA: >10%. Pt case sent to [facility] to prescribe Dupixent. (we have received the approval)P t to not apply any betamethas one on the face -- too strong for the face.Cont to moisturize well with OTC Vanicream. pt to call if she has any issues picking up Rx. [id number] QUINTIN RODRIGUEZ [address] [address] 01/30/2024 09:56:46 01/30/2024 10:45:11 Atopic dermatitis 29967966 L20.89 Z79.899 The nature of the diagnosis was discussed. Pt has failed betamethas one, hydrocorti sone, and tacrolimus .BSA: >10%.Pt has been on Dupixent for 12 wks with no improvemen t.Pt also notices having GI issues after each Dupixent injections . Stop OTC Blistex on the lips. Use OTC Aquaphor or Vaselin instead.St op all fragranced products for now - does burn candles and wax melts. (she did stop for a while and did not improve but still rec not to burn candles or have any fragrant plug ins) Jaxon Angel MD examined the patient.Wi ll start PA process for Rx Cibinqo.La b order given to pt.Samples of Rx Cibinqo given to pt. Don't start the medication until lab orders are reviewed.P t to call when she runs out of Rx Cibinqo. (only 2 weeks in the sample bottle) Pt to start using Rx Hydrocorti sone 2.5% topical ointment BID x 7 day. SE reviewed. LT use discussed. [id number] QUINTIN RODRIGUEZ [facility] [address] [place] [id number] 04/18/2024 10:48:11 04/18/2024 11:58:18 Atopic dermatitis 06934972 L20.89 The nature of the diagnosis was discussed. Prior tx that pt failed: betamethas one, hydrocorti sone, tacrolimus , Dupixent (no improvemen t w/ GI issues.)BS A: >10%. Jaxon Angel MD examined the patient.Pn t uses fragranced body spray twice per week, Pnt also uses OTC tresemme hair spray 2-3 times per week as well. Rec to hold off all fragranced products for the next 8 wks. (including her 's cologne)Re c OTC Vanicream products only. QUINTIN submitted to [facility] to start prior auth for opzelura cream.Samp le of opzelura and cibinqo given to pt. Prescri chanda of Citalopram said okay to take with the Cibinqo. Once the rash has under control, rec to re-challen ge one product at a time.Patch testing : july of 2023 all negative (done here) [id number] AJ KAY JR, MD [facility] [address] [facility] [address] [place] [address] 04/19/2024 14:51:14 04/19/2024 14:55:28 Left kidney absent 880308811 Z90.5 Renal insufficiency 7231 21449 N28.9 [id number] QUINTIN RODRIGUEZ [facility] [address] [place] [id number] 06/14/2024 09:48:27 06/14/2024 13:02:27 Atopic dermatitis 49204466 L20.89 L29.9 The nature of the diagnosis was discussed. Prior tx that pt failed: betamethas one, hydrocorti sone, tacrolimus , Dupixent (no improvemen t w/ GI issues.)Quintin tch testing : july of 2023 all negative (done here). Pt stated she has held off on all fragrance products including her 's cologne.Me ssage sent to [facility] to start prior auth for opzelura cream since not taking Cibinqo. (pt never got rx and will not be getting). The pharmacy told her that they have been trying to get a hold of us for a month. I see nothing about this on the Cibinqo only concerning the Opzelura. If they tell pnt this again have them call my extension since we have never received a message from them. Sample of opzelura given to pt.Pt uses Vanicream. Pt went to [facility] assistant last Tuesday and they started her on 2 claritin qd, 2 Zyrtec qd, elidel bid, and an eye drop. They did allergy prick testing and she is allergic to dog, cats, pollen and other things. (Pnt does have dogs/cats) Rec pt continue taking the 2 Claritin 1 zyrtec (instead of 2 since adding the hydroxyzin e before bed) with dinner and then 1 hydroxyzin e at bedtime. Hydroxyzin e can make drowsy and she is having a hard time sleeping since she is so itchy and miserable. Pt using elidel bid x 2 weeks and then start Opzelura bid. Rx sent for Hydroxyzin e 25mg, take 1 tab qhs. SE reviewed. Pnt follows up with [facility] assistant in one month. They consider if she needs allergy shots at that time. She improved so much when she was in [place] (she did have her dogs with her during that trip) Pt to call if flares/ worsens. Health Concerns Section Related Observation LastModified by Organization Detai ls LastModified Time None Recorded Concern Status LastModified by Organization Details LastModified Time None Recorded Advance Directives Directive None Recorded Payers Insurance Date Sequence Insurance Name Policy Number Policy Bran Covered Member ID Bran Member ID Guarantor Name 06/13/2024 1 BCALAN-IA: [facility] [id number] Justino Gomez [id number] Lorraine Gomez Notes Date Note Type Note Provider Name and Address Organization Details Recorded Time 11/09/2023 text/html ROS as noted in the [facility] Follow up on Atopic DermatitisLocation: FacePrior Tx: betamethasone, augmented 0.05 % topical ointmentReports: As soon as I stopped using it my rash came back within days. QUINTIN RODRIGUEZ [address] [place], [address], [facility] 11/09/2023 12:52:31 01/30/2024 text/html ROS as noted in the [facility] atopic derm3 month follow uptx: dupixentreports: flare up head and neck QUINTIN RODRIGUEZ [address] [place], [address], [facility] 01/31/2024 20:20:34 04/18/2024 text/html ROS as noted in the [facility] atopic dermatitis.location: eyelids3 month f/uTx: Cibinqo, vanicreamprior tx: dupixent.reports: Everything is not going well. I am taking 1 cibinqo a day and just using vanicream. Mahad es fragrance usage or candle usage. QUINTIN RODRIGUEZ [address] [place], [address], [facility] 04/18/2024 13:14:31 04/19/2024 text/html The patient is a 48-year-old female presenting with monitoring of kidney function and follow-up on previously identified renal abnormalities. She has a known medical history of an absent kidney, with the remaining right kidney working harder, described as having an enlargement or fullness. This condition has been monitored over time, with the recent ultrasound indicating no change from the previous year's findings. The patient's renal status is checked regularly, with previous evaluations revealing enlargement but stable functioning. Prior intervention includes an annual ultrasound to monitor size and function, with additional biannual blood work conducted to assess renal function at her primary care physician's office. The plan has remained consistent, emphasizing yearly surveillance to preemptively address any changes. patient is in today for follow-up after robotic-assisted laparoscopic left nephrectomy for chronic hydronephrosis, flank pain, renal unit nonfunction. she underwent nephrectomy September 07, 2021. AJ KAY JR, MD [facility] [place], [address], [facility] 04/23/2024 08:44:05 06/14/2024 text/html ROS as noted in the HPI atopic dermatitis location: neck, face and chest tx: none b/c of mis communications prior tx: july reports: I am doing good day, but it has been really bad. QUINTIN RODRIGUEZ [address] [place], [address], [facility] 06/14/2024 10:34:55 OBGyn Episode No OBEpisode recorded.
--- OUTSIDE RECORDS SUMMARY | 2025-03-04 15:47 | XMS_ITS | Referral Summary ---
Author Organization [facility] ([place], [place], [place], [place], [place]) Address [address] [place] [address] Care Team Providers Care Transmission Line Engineer Name Role Phone Unavailable Primary Care Provider [...] Active Active Problems No known active problems Social History Tobacco Use Types Packs/Day Years [...] Date Bertin rded Speak language other than Barbadian at home Not on file 04/01/2023 Want [...] 12/10/2022 10:13 AM EDT Plan of Treatment Not on file Procedures Procedure Name Priority Date/Time Associated Diagnosis Comments THINPREP TIS PAP RFX HPV AP Routine 12/10/2022 12:00 AM EDT from Last 3 Months or Most Recently Relevant to Health Maintenance Results * THINPREP TIS PAP RFX HPV (12/10/2022 12:00 AM EDT) Smear us Historical Provider MD PATHOLOGY/CYTOLOGY ORDERA BLES Final Result [facility] [address] from Last 3 Months or Most Recently Relevant to Health Maintenance Insurance [facility] [place] [address] [facility] ANTH TRAD
--- OUTSIDE RECORDS SUMMARY | 2025-03-04 15:47 | XMS_ITS | Clinical Summary ---
Author Organization [facility] Address [address] [place] [address] Care Team Providers Care Sales Engineering Manager Name Role Phone RyanneNichole rachel Eris CALVO Primary Care Provider [phone] Sammy Allen MD Unavailable [phone] Allergies Active Allergy Reactions Criticality Noted Date Comments Egg Shells Vomiting 12/10/2022 Medications ferrous sulfate 325 (65 Fe) MG tablet 325 MILLIGRAM BY MOUTH ONCE DAILY 2 Active Euthyrox 137 MCG tablet 2 Active Multiple Vitamins-Minera ls (ONE-A-DAY FOR HER VITACRAVES PO) Take by mouth. Active citalopram (CeleXA) 20 MG tablet Take 2 tablets (40 mg) by mouth 1 (one) time each day. 2 Active [facility] [employer] [facility] PO Take by mouth. Activ e loratadine (Claritin) 10 MG tablet Take 1 tablet (10 mg) by mouth 1 (one) time each day. Active Multiple Vitamin (multivitamin) capsule Take 1 capsule by mouth 1 (one) time each day. Active Family History Medical History Relation Name Comments Heart Problem Father Cancer Maternal Grandfather Stroke Maternal Grandfather Lymphoma Mother Cancer Paternal Grandfather Cancer Paternal Grandmother Diabetes Paternal Grandmother Relation Name Status Comments Father Maternal Grandfather Mother Paternal Grandfather Paternal Grandmother Social History Tobacco Use Types Packs/Day Years Used Date Smoking Tobacco: Never Smokeless Tobacco: Never Tobacco Cessation:Counseling Given: Not Answered Alcohol Use Standard Drinks/Week Comments Yes 0 (1 standard drink = 0.6 oz pur e alcohol) Comments Unknown Sex and Gender Information Value Date Recorded Sex Assigned at Not on file Legal Sex Female 8:41 AM EST Gender Identity Not on file Sexual Orientation Not on file Last Filed Vital Signs Vital Sign Reading Time Taken Comments Blood Pressure 110/70 05/06/2023 1:37 PM EST Pulse 68 05/06/2023 1:37 PM EST Temperature - - Respiratory Rate 18 05/06/2023 1:37 PM EST Oxygen Saturation 98% 05/06/2023 1:37 PM EST Inhaled Oxygen Concentration - - Weight 62 kg (136 lb 11 oz) 05/06/2023 1:[address] Height 162.6 cm (5' 4 ) 05/06/2023 1:37 PM EST Body Mass Index 23.46 05/06/2023 1:37 PM EST Plan of Treatment Health Maintenance Due Date Last Done Comments [facility]-Depression Screening 1974 [facility]-HIV Screening 1974 [facility]-Hepatitis C Screening 1974 [facility]-Infant/Child/Adol SDOH Screenings 1974 [id number] Vaccine (#1) 06/20/1975 [facility]- SDOH Screenings 1992 [facility]-Adult SDOH Screenings 1992 [facility]-DTaP,Tdap,and Td Vaccine s (1 - Tdap) 1993 [facility]-Hepatitis B Vaccines (1 of 3 - 19+ 3-dose series) 1993 [facility]-Pap Smear 12/20/1995 [facility]-Cervical Cancer Screening 2004 [facility]-HPV/Cotest 2004 CT Colonography 12/20/2019 Colonoscopy 12/20/2019 FIT-DNA 12/20/2019 FIT 12/20/2019 FOBT 12/20/2019 Sigmoidoscopy 12/20/2019 [facility]-Colorectal Cancer Screening 12/20/2019 [facility]-Influenza Vaccine (#1) 2024 [facility]-Breast Cancer Screening 2024 [facility]-Pneumococcal Vaccine: 50 + Years (1 of 1 - PCV) 2024 [facility]-Zoster Vaccines (1 of 2) 2024 [facility]-Hepatitis A Vaccines Aged Out 02/21/2018 No longer eligible based on patient's age to complete this topic HPV Vaccines (No Doses Required) Completed [facility]-HIB Vaccines Aged Out No longer e ligible based on patient's age to complete this topic [facility]-IPV Vaccines Aged Out No longer e ligible based on patient's age to complete this topic [facility]-Rotavirus Vaccines Aged Out No lo nger eligible based on patient's age to complete this topic Insurance Dr [facility] ANTHEM Care Teams Sales Engineering Manager Relationship Specialty Start Date End Date Nichole Pearl APRN [address] [address] PCP - General 04/30/22 Sammy Allen MD [id number] [place] [address] Surgeon Neurosurgery 04/30/22
--- OUTSIDE RECORDS SUMMARY | 2025-03-04 15:47 | XMS_ITS | Encounter Summary ---
Author Organization [facility] Address [address] [place] [address] Care Team Providers Care Sanitation Worker Hosing Machinery Name Role Phone Nichole Pearl APRN Primary Care Provider [phone] Sammy Allen MD Unavailable [phone] Reason for Referral * Consultation (Routine) - Closed Specialty Diagnoses / Procedures Referred By Contana t Referred To Contact Neurosurgery Diagnoses Pituitary adenoma (CMS/HCC) Nichole Pearl, COLLAR SHAPER OPERATOR [address] [address] Phone: tel: fax: Referral ID Status Reason Start Date Expiration Date V isits Requested Visits Authorized [id number] Closed Specialty Services Required 01/21/2022 07/23/2023 1 1 Encounter Details Date Type Department Care Team (Late st Contact Info) Description 01/21/2022 Community [facility] [address] [place] [address] Nichole Pearl, COLLAR SHAPER OPERATOR [address] [address] Pituitary adenoma (CMS/HCC) (Primary Dx) Social History Tobacco Use Types Packs/Day Years Used Date Smoking Tobacco: Never Assessed Comments Unknown Sex and Gender Information Value Date Recorded Sex Assigned at Not on file Legal Sex Female 8:41 AM EST Gender Identity Not on file Sexual Orientation Not on file documented as of this encounter Plan of Treatment Scheduled Referrals Name Type Priority Associated Diagnoses Order Schedule Ambulatory Referral to Neurosurgery Outpatient Referral Routine Pituitary adenoma (CMS/HCC) Expected: 01/21/2022 (Approximate), Expires: 07/22/2023 documented as of this encounter Visit Diagnoses Diagnosis Pituitary adenoma (CMS/HCC)- Primary Benign neoplasm of pituitary gland and craniopharyngeal duct (pouch) documented in this encounter Care Teams Sanitation Worker Hosing Machinery Relationship Specialty Start Date End Date Nichole Pearl APRN [address] [address] PCP - General 04/30/22 Sammy Allen MD [address] [id number] Surgeon Neurosurgery 04/30/22 documented as of this encounter
== END 2025-03-04 23:59 | disposition home or self-care (01) ==
LOC: RAD 15:45
PROVIDERS: PCP Nurse Practitioner Family; Visit Provider Nurse Practitioner Family
DX: Z12.31 Encounter for screening mammogram for malignant neoplasm of breast (principal); R92.333 Mammographic heterogeneous density, bilateral breasts
CPT/HCPCS: 77063; 77067